=== PATIENT | male | born 1980 | race African-American/Black ===

== ENCOUNTER 2016-07-29 13:26 | Inpatient (IN) | payer OTHER ==
[~2016-07-29] VITALS: Ht 180.3 cm; Wt 106.2 kg
[2016-07-29 13:32] VITALS: BP 185/104
[2016-07-29 14:06] LABS: BASO % 0.3 % (0.0-1.0); EOS % 0.2 % (1.0-4.0); HEMATOCRIT 42.6 % (42.0-52.0); HEMOGLOBIN 14.9 g/dl (14.0-18.0); IG # 0.1 10*3/uL (0.0-0.1); LYMPH # 1.3 10*3/uL (1.3-4.4); LYMPH % 12.9 % (27.0-41.0); MEAN CELL VOLUME 87.1 fl (80.0-94.0); MEAN CORPUSCULAR HGB 30.5 pg (27.0-31.0); MONO # 0.6 10*3/uL (0.1-1.0); MONO % 5.5 % (3.0-9.0); NEUT # 8.2 10*3/uL (2.3-7.9); NEUT % 80.4 % (47.0-73.0); PLATELET COUNT AUTOMATED 288 10*3/uL (130-400); RED BLOOD COUNT 4.89 10*6/uL (4.50-5.90); RED CELL DISTRI WIDTH 11.9 % (0-14.5); WHITE BLOOD COUNT 10.2 10*3/uL (4.8-10.8)
[2016-07-29 14:22] LABS: ALBUMIN 3.9 gm/dl (3.1-4.5); ALKALINE PHOSPHATASE 127 U/L (45-117); BILIRUBIN, TOTAL 0.6 mg/dl (0.2-1.0); BUN 21 mg/dl (7-24); CARBON DIOXIDE 20 mmol/L (21-32); CHLORIDE 87 mmol/L (98-107); EST GLOM FILT AFRICAN AMERICAN > 60 ml/min; POTASSIUM 4.9 mmol/L (3.5-5.1); SGOT/AST 14 IU/L (3-35); SGPT/ALT 52 U/L (12-78); SODIUM 125 mmol/L (136-145); TOTAL PROTEIN 8.1 gm/dL (6.4-8.2)
[2016-07-29 14:24] VITALS: BP 150/77
[2016-07-29 14:26] LABS: GLUCOSE 825 mg/dL (65-99)
[2016-07-29 15:20] VITALS: BP 160/86
[2016-07-29 16:01] LABS: ABG CO2 CONTENT 18.4 mmol/L (23-27); ABG HCO3 17.4 mmol/l (22-26); ARTERIAL BLOOD GAS PH 7.342 (7.35-7.45); ARTERIAL BLOOD GAS PO2 91.8 mmHg (80-90)
[2016-07-29 17:38] VITALS: BP 161/85
[2016-07-29 17:42] LABS: BUN 17 mg/dl (7-24); CARBON DIOXIDE 24 mmol/L (21-32); CHLORIDE 104 mmol/L (98-107); CKMB 2.3 ng/ml (0.5-3.6); CPK 242 U/L (39-308); EST GLOM FILT AFRICAN AMERICAN > 60 ml/min; GLUCOSE 392 mg/dL (65-99); POTASSIUM 4.2 mmol/L (3.5-5.1); SODIUM 139 mmol/L (136-145); TROPONIN I < 0.015 ng/ml (<0.045)
[2016-07-29 19:02] LABS: HEMOGLOBIN A1c 11.6 % (4.8-5.6)
[2016-07-29 20:00] VITALS: BP 152/92
[2016-07-30] VITALS: BP 114/65
[2016-07-30 00:02] LABS: BUN 15 mg/dl (7-24); CARBON DIOXIDE 29 mmol/L (21-32); CHLORIDE 109 mmol/L (98-107); EST GLOM FILT AFRICAN AMERICAN > 60 ml/min; GLUCOSE 156 mg/dL (65-99); POTASSIUM 3.6 mmol/L (3.5-5.1); SODIUM 143 mmol/L (136-145)
[2016-07-30 00:28] LABS: CKMB 2.3 ng/ml (0.5-3.6); CPK 236 U/L (39-308); POTASSIUM 3.6 mmol/L (3.5-5.1)
[2016-07-30 00:37] LABS: TROPONIN I < 0.015 ng/ml (<0.045)
[2016-07-30 04:00] VITALS: BP 123/47
[2016-07-30 05:04] LABS: CHOLESTEROL 132 mg/dL (<200); CPK 212 U/L (39-308); HDL CHOLESTEROL 32 mg/dl (40-60); LDL CHOLESTEROL 67 mg/dL (9-159); POTASSIUM 4.3 mmol/L (3.5-5.1); TRIGLYCERIDES 165 mg/dl (<150); VLDL CHOLESTEROL 33 mg/dL (6-40)
[2016-07-30 05:05] LABS: CKMB 2.2 ng/ml (0.5-3.6); TROPONIN I < 0.015 ng/ml (<0.045)
[2016-07-30 05:27] LABS: ALKALINE PHOSPHATASE 88 U/L (45-117); BILIRUBIN, TOTAL 0.5 mg/dl (0.2-1.0); BUN 14 mg/dl (7-24); CARBON DIOXIDE 26 mmol/L (21-32); CHLORIDE 109 mmol/L (98-107); CHOLESTEROL 132 mg/dL (<200); EST GLOM FILT AFRICAN AMERICAN > 60 ml/min; FREE T4 1.28 ng/dl (0.76-1.46); GLUCOSE 193 mg/dL (65-99); HDL CHOLESTEROL 33 mg/dl (40-60); LDL CHOLESTEROL 67 mg/dL (9-159); PHOSPHOROUS 2.8 mg/dL (2.5-4.9); POTASSIUM 4.1 mmol/L (3.5-5.1); SGOT/AST 16 IU/L (3-35); SGPT/ALT 38 U/L (12-78); SODIUM 145 mmol/L (136-145); TOTAL PROTEIN 6.1 gm/dL (6.4-8.2); TRIGLYCERIDES 158 mg/dl (<150); VLDL CHOLESTEROL 32 mg/dL (6-40)
[2016-07-30 06:08] LABS: BASO % 0.4 % (0.0-1.0); EOS # 0.1 10*3/uL (0.0-0.4); EOS % 1.1 % (1.0-4.0); IG # 0.1 10*3/uL (0.0-0.1); LYMPH # 2.5 10*3/uL (1.3-4.4); LYMPH % 27.7 % (27.0-41.0); MEAN CELL VOLUME 88.8 fl (80.0-94.0); MEAN CORPUSCULAR HGB 30.1 pg (27.0-31.0); MEAN CORPUSCULAR HGB CONC 33.9 g/dl (33.0-37.0); MEAN PLATELET VOLUME 11.3 fl (9.6-12.3); MONO # 0.6 10*3/uL (0.1-1.0); MONO % 6.8 % (3.0-9.0); NEUT # 5.7 10*3/uL (2.3-7.9); NEUT % 63.3 % (47.0-73.0); PLATELET COUNT AUTOMATED 250 10*3/uL (130-400); RED BLOOD COUNT 4.09 10*6/uL (4.50-5.90); RED CELL DISTRI WIDTH 12.1 % (0-14.5)
[2016-07-30 06:14] LABS: HEMATOCRIT 36.3 % (42.0-52.0); HEMOGLOBIN 12.3 g/dl (14.0-18.0)
[2016-07-30 06:19] LABS: PROTHROMBIN TIME 10.5 SECONDS (9.0-12.4)
[2016-07-30 06:59] LABS: FOLIC ACID 8.7 ng/mL (>5.38); VITAMIN D, 25-HYDROXY 11.7 ng/mL (30-100)
[2016-07-30 08:00] VITALS: BP 160/98
[2016-07-30 08:02] LABS: HEMOGLOBIN A1c 11.6 % (4.8-5.6)
[2016-07-30 14:28] LABS: BILIRUBIN NEGATIVE (NEGATIVE); BLOOD NEGATIVE (NEGATIVE); CLARITY CLEAR (CLEAR); COLOR YELLOW (YELLOW); GLUCOSE 3+ (NEGATIVE); KETONE 3+ (NEGATIVE); LEUKO ESTERASE NEGATIVE (NEGATIVE); NITRITE NEGATIVE (NEGATIVE); PROTEIN NEGATIVE (NEGATIVE); SPECIFIC GRAVITY 1.015 (1.005-1.030); UROBILINOGEN 0.2 E.U./dl (0.2-1.0)
[2016-07-30 14:43] LABS: BACTERIA TRACE; EPITHELIAL CELLS 0-2; RBC 0-2 rbc/hpf (0-2); URIC ACID CRYSTALS 2+; WBC 0-2 wbc/hpf (0-5)
[2016-07-30 16:00] VITALS: BP 136/80
[2016-07-30 20:00] VITALS: BP 112/72
[2016-07-31] VITALS: BP 166/92
[2016-07-31 04:00] VITALS: BP 162/95
[2016-07-31 06:22] LABS: BASO % 0.5 % (0.0-1.0); EOS # 0.1 10*3/uL (0.0-0.4); EOS % 1.4 % (1.0-4.0); HEMATOCRIT 35.5 % (42.0-52.0); HEMOGLOBIN 12.1 g/dl (14.0-18.0); IG # 0.1 10*3/uL (0.0-0.1); LYMPH # 2.6 10*3/uL (1.3-4.4); LYMPH % 31.8 % (27.0-41.0); MEAN CELL VOLUME 89.2 fl (80.0-94.0); MEAN CORPUSCULAR HGB 30.4 pg (27.0-31.0); MEAN CORPUSCULAR HGB CONC 34.1 g/dl (33.0-37.0); MEAN PLATELET VOLUME 10.9 fl (9.6-12.3); MONO # 0.6 10*3/uL (0.1-1.0); NEUT # 4.7 10*3/uL (2.3-7.9); NEUT % 58.6 % (47.0-73.0); PLATELET COUNT AUTOMATED 239 10*3/uL (130-400); RED BLOOD COUNT 3.98 10*6/uL (4.50-5.90); RED CELL DISTRI WIDTH 12.2 % (0-14.5)
[2016-07-31 06:30] LABS: ALBUMIN 2.9 gm/dl (3.1-4.5); ALKALINE PHOSPHATASE 83 U/L (45-117); BILIRUBIN, TOTAL 0.2 mg/dl (0.2-1.0); BUN 11 mg/dl (7-24); CARBON DIOXIDE 26 mmol/L (21-32); CHLORIDE 103 mmol/L (98-107); EST GLOM FILT AFRICAN AMERICAN > 60 ml/min; GLUCOSE 245 mg/dL (65-99); POTASSIUM 3.8 mmol/L (3.5-5.1); SGOT/AST 11 IU/L (3-35); SGPT/ALT 39 U/L (12-78); SODIUM 140 mmol/L (136-145); TOTAL PROTEIN 5.8 gm/dL (6.4-8.2)
[2016-07-31 08:00] VITALS: BP 100/56
[2016-07-31] MEDS ORDERED: GLUCOPHAGE500 MG PO (10:33)
[2016-07-31] MEDS ORDERED: LISINOPRIL5 MG PO (10:33)
[2016-07-31] MEDS ORDERED: VITAMIN D50000 I3 PO (10:33)
[2016-07-31] MEDS ORDERED: TRAD5TAB1 PO (10:33)
[2016-07-31] MEDS ORDERED: ASPIRIN CHEWABL81 M1 PO (10:33)
[2016-07-31] MEDS ORDERED: LIPITOR10 MG PO (10:33)
[2016-07-31] MEDS ORDERED: [UNRECOGNIZED DRUG - OTHER] TP (10:37)
[2016-07-31] MEDS ORDERED: [UNRECOGNIZED DRUG - SUPPLY] MC (10:37)
[2016-07-31] MEDS ORDERED: LANTUS100 U/ML SC ×2 (10:37→12:35)
[2016-07-31] MEDS ORDERED: TEST STRIPS1 EACH MC (10:37)
[2016-07-31] MEDS ORDERED: HUMULIN R100 U/ML SC (10:37)
[2016-07-31 12:00] VITALS: BP 126/68
== END 2016-07-31 14:30 | disposition home or self-care (01) | DRG 638 ==
LOC: ED 13:26 → ICCU 15:12 → EDHOLD 15:12 → ICCU 15:34
PROVIDERS: Internal Medicine; Registered Nurse
DX: E13.10 Other specified diabetes mellitus with ketoacidosis without coma (principal); N17.9 Acute kidney failure, unspecified; E87.1 Hypo-osmolality and hyponatremia; R35.0 Frequency of micturition; Z83.3 Family history of diabetes mellitus; I10 Essential (primary) hypertension; L81.8 Other specified disorders of pigmentation

== ENCOUNTER 2016-08-12 13:24 | Emergency (ER) | payer OTHER ==
[~2016-08-12] VITALS: Ht 180.3 cm; Wt 108.9 kg
[~2016-08-12 13:24] MED LIST: ASPIRIN CHEWABL81 M1 PO; GLUCOPHAGE500 MG PO; HUMULIN R100 U/ML SC; LANTUS100 U/ML SC; LIPITOR10 MG PO; LISINOPRIL5 MG PO; TEST STRIPS1 EACH MC; TRAD5TAB1 PO; VITAMIN D50000 I3 PO; [UNRECOGNIZED DRUG - OTHER] TP; [UNRECOGNIZED DRUG - SUPPLY] MC
[2016-08-12] MEDS ORDERED: METFORMIN HCL500 M2 PO (13:33)
[2016-08-12 14:03] LABS: BASO % 0.3 % (0.0-1.0); EOS % 0.1 % (1.0-4.0); HEMOGLOBIN 13.3 g/dl (14.0-18.0); IG # 0.1 10*3/uL (0.0-0.1); LYMPH # 1.6 10*3/uL (1.3-4.4); MEAN CELL VOLUME 91.7 fl (80.0-94.0); MEAN CORPUSCULAR HGB 30.5 pg (27.0-31.0); MEAN CORPUSCULAR HGB CONC 33.3 g/dl (33.0-37.0); MEAN PLATELET VOLUME 9.8 fl (9.6-12.3); MONO # 1.1 10*3/uL (0.1-1.0); MONO % 7.3 % (3.0-9.0); NEUT # 12.7 10*3/uL (2.3-7.9); NEUT % 81.5 % (47.0-73.0); PLATELET COUNT AUTOMATED 284 10*3/uL (130-400); RED BLOOD COUNT 4.36 10*6/uL (4.50-5.90); RED CELL DISTRI WIDTH 12.5 % (0-14.5); WHITE BLOOD COUNT 15.6 10*3/uL (4.8-10.8)
[2016-08-12 14:22] LABS: ALBUMIN 3.8 gm/dl (3.1-4.5); ALKALINE PHOSPHATASE 78 U/L (45-117); BILIRUBIN, TOTAL 0.4 mg/dl (0.2-1.0); BUN 10 mg/dl (7-24); C-REACTIVE PROTEIN 8.39 MG/DL (0-0.3); CARBON DIOXIDE 27 mmol/L (21-32); CHLORIDE 100 mmol/L (98-107); CKMB 0.6 ng/ml (0.5-3.6); CPK 113 U/L (39-308); EST GLOM FILT AFRICAN AMERICAN > 60 ml/min; GLUCOSE 185 mg/dL (65-99); SGOT/AST 13 IU/L (3-35); SGPT/ALT 41 U/L (12-78); SODIUM 136 mmol/L (136-145); TOTAL PROTEIN 7.9 gm/dL (6.4-8.2)
[2016-08-12 14:24] LABS: TROPONIN I < 0.015 ng/ml (<0.045)
[2016-08-12 14:30] LABS: INTERNATIONAL NORM RATIO 0.9 (2.0-3.5)
[2016-08-12 14:54] LABS: BILIRUBIN NEGATIVE (NEGATIVE); BLOOD NEGATIVE (NEGATIVE); CLARITY CLEAR (CLEAR); COLOR YELLOW (YELLOW); GLUCOSE NEGATIVE (NEGATIVE); KETONE NEGATIVE (NEGATIVE); LEUKO ESTERASE NEGATIVE (NEGATIVE); NITRITE NEGATIVE (NEGATIVE); PH 5.5 (5.0-9.0); PROTEIN TRACE (NEGATIVE); SPECIFIC GRAVITY 1.025 (1.005-1.030); UROBILINOGEN 0.2 E.U./dl (0.2-1.0)
[2016-08-12 15:06] LABS: MUCOUS 1+; RBC 0-2 rbc/hpf (0-2)
[2016-08-12 15:07] LABS: URINE REFLEX COMMENT NO (NO)
== END 2016-08-12 17:46 | disposition home or self-care (01) ==
LOC: ED 13:24
PROVIDERS: Emergency Medicine
DX: R10.13 Epigastric pain (principal); I10 Essential (primary) hypertension; E11.9 Type 2 diabetes mellitus without complications; Z79.4 Long term (current) use of insulin; Z79.82 Long term (current) use of aspirin

== ENCOUNTER 2017-12-28 08:50 | Emergency (ER) | payer OTHER ==
[~2017-12-28] VITALS: Ht 180.3 cm; Wt 108.9 kg
[~2017-12-28 08:50] MED LIST changes: +METFORMIN HCL500 M2 PO
[2017-12-28] MEDS ORDERED: Motrin,Rufen800 MG PO (10:20)
== END 2017-12-28 10:33 | disposition home or self-care (01) ==
LOC: ED 08:50
DX: S39.012A Strain of muscle, fascia and tendon of lower back, initial encounter (principal); M54.30 Sciatica, unspecified side; I10 Essential (primary) hypertension; E11.9 Type 2 diabetes mellitus without complications; Z79.82 Long term (current) use of aspirin; Z79.899 Other long term (current) drug therapy; X50.0XXA Overexertion from strenuous movement or load, initial encounter; Y93.89 Activity, other specified; Y92.89 Other specified places as the place of occurrence of the external cause; Y99.8 Other external cause status

== ENCOUNTER 2022-03-12 12:11 | Emergency (ER) | payer OTHER ==
[~2022-03-12] VITALS: Wt 90.7 kg
[~2022-03-12 12:11] MED LIST changes: +Motrin,Rufen800 MG PO
[2022-03-12 14:33] LABS: BASO % 0.6 % (0.0-1.0); EOS % 0.8 % (1.0-4.0); HEMATOCRIT 44.5 % (42.0-52.0); LYMPH # 1.4 10*3/uL (1.3-4.4); LYMPH % 30.5 % (27.0-41.0); MEAN CELL VOLUME 91.6 fl (80.0-94.0); MEAN CORPUSCULAR HGB 31.1 pg (27.0-31.0); MEAN CORPUSCULAR HGB CONC 33.9 g/dl (33.0-37.0); MEAN PLATELET VOLUME 9.2 fl (9.6-12.3); MONO # 0.4 10*3/uL (0.1-1.0); MONO % 8.5 % (3.0-9.0); NEUT # 2.8 10*3/uL (2.3-7.9); NEUT % 59.2 % (47.0-73.0); PLATELET COUNT AUTOMATED 271 10*3/uL (130-400); RED BLOOD COUNT 4.86 10*6/uL (4.50-5.90); RED CELL DISTRI WIDTH 11.9 % (0-14.5); WHITE BLOOD COUNT 4.7 10*3/uL (4.8-10.8)
[2022-03-12 14:53] LABS: ALKALINE PHOSPHATASE 46 U/L (46-116); BUN 12 mg/dl (9-23); CHLORIDE 105 mmol/L (98-107); CREATININE 0.79 mg/dL (0.70-1.30); POTASSIUM 4.1 mmol/L (3.4-5.1); SGPT/ALT 22 U/L (10-49); SODIUM 137 mmol/L (136-145)
[2022-03-12 14:54] LABS: TOTAL PROTEIN 6.9 gm/dL (6.0-8.0)
[2022-03-12] MEDS ORDERED: NEURONTIN300 MG PO (15:41)
== END 2022-03-12 15:44 | disposition home or self-care (01) ==
LOC: ED 12:11
PROVIDERS: Emergency Medicine
DX: G62.9 Polyneuropathy, unspecified (principal)

== ENCOUNTER → 2023-10-26 | Outpatient (CLI) | payer OTHER ==
[~2023-10-26] MED LIST changes: +NEURONTIN300 MG PO
== END | disposition home or self-care (01) ==
LOC: LAB 12:49
PROVIDERS: ATTEND Surgery
DX: Z01.812 Encounter for preprocedural laboratory examination (principal)

== ENCOUNTER → 2023-10-27 | Outpatient (CLI) | payer OTHER ==
[~2023-10-27] MED LIST changes: +IOHEXOL 300 MG/ML 100 ML VIAL IV ONE
== END | disposition home or self-care (01) ==
LOC: LAB 01:25 → CT 01:25
PROVIDERS: ATTEND Surgery
DX: K42.9 Umbilical hernia without obstruction or gangrene (principal); Z93.9 Artificial opening status, unspecified